=== PATIENT | female | born 1965 | race Caucasian/White ===

== ENCOUNTER → 2017-01-18 | Outpatient (CLI) | payer BC ==
--- NOTE | 2017-01-19 07:48 | MAMMOGRAPHY REPORT ---
BILATERAL DIGITAL DIAGNOSTIC MAMMOGRAM TOMOSYNTHESIS WITH CAD: 01/18/2017 CLINICAL HISTORY: History of right breast cancer status post lumpectomy, who presents for routine [facility] mammography. Also bilateral breast implants. The patient reports no current complaints. TECHNIQUE: Breast tomosynthesis in addition to standard 2D mammography was performed. Current study was also evaluated with a Computer Aided Detection (CAD) system. Bilateral CC and MLO 2-D and tomosy nthesis images were obtained. Tomosynthesis images were obtained of the implant displaced views only . COMPARISON: Comparison is made to exams dated: 01/18/2016 mammogram, 07/16/2015 mammogram, 01/14/2015 ultrasound, 01/14/2015 mammogram, 07/15/2014 mammogram, and 01/02/2014 mammogram - [facility]. BREAST COMPOSITION: The tissue of both breasts is heterogeneously dense, which may obscure small mas ses. FINDINGS: There are stable post surgical changes in the right lower inner quadrant from prior lumpect kulwinder, including stable architectural distortion and a surgical clip at the lumpectomy bed. A linear s car marker denotes a scar on the right medial breast. Loosely grouped benign-appearing punctate and coarse calcifications in the right lower inner quadrant near the lumpectomy bed are stable compared t o multiple prior exams including the January 2015 exam. Given the benign morphology and long-term st ability, the calcifications are considered benign. There are no suspicious masses, calcifications, o r areas of architectural distortion noted within either breast. Again noted is a circumscribed oval 11 mm mass in the left lower inner quadrant, which was shown to represent a benign cyst on the prior January 2015 ultrasound exam. IMPRESSION: ACR BI-RADS CATEGORY 2: BENIGN There is no mammographic evidence of malignancy in either breast. A 1 year screening mammogram is rec ommended. The patient has been verbally notified of the results. Approximately 10% of breast cancers are not detected with mammography. A negative mammographic report should not delay biopsy if a clinically suggestive mass is present. Izabela Mancini M.D. /:01/18/2017 13:12:49 Epidemiologist: Geri Apple RT(R)(M), [facility] letter sent: Normal 1/2 BI-RADS Code: ACR BI-RADS Category 2: Benign
== END | disposition home or self-care (01) ==
LOC: C.MAMM 12:00
PROVIDERS: ATTEND Surgery
DX: Z12.31 Encounter for screening mammogram for malignant neoplasm of breast (principal); Z85.3 Personal history of malignant neoplasm of breast; Z98.82 Breast implant status

== ENCOUNTER → 2017-02-15 | Outpatient (CLI) | payer BC | END | disposition home or self-care (01) | LOC: C.PATHSPEC 13:20 | PROVIDERS: ATTEND Obstetrics & Gynecology | DX: N93.9 Abnormal uterine and vaginal bleeding, unspecified (principal) ==

== ENCOUNTER → 2017-02-27 | Outpatient (CLI) | payer BC ==
[2017-02-27 18:00] LABS: BASO % 0.2 %; BASO ABS # 0.01 K/uL (0-0.2); COMPLETE YES; EOS % 3.1 %; IG% 0.2 %; LYMPH % 31.3 %; MEAN CELL VOLUME 92.1 fL (80-100); MEAN CORPUSCULAR HEMOGLOBIN 30.8 pg (25-34); MEAN CORPUSCULAR HGB CONC 33.4 g/dl (32-36); MEAN PLATELET VOLUME 10.8 fL (7.4-10.4); MONO % 8.5 %; NEUT % 56.7 %; PLATELET COUNT 206 K/uL (130-400); RED BLOOD COUNT 4.45 M/uL (4.2-5.4); WHITE BLOOD COUNT 5.43 K/uL (4.8-10.8)
[2017-02-27 18:01] LABS: PREG INTERNAL NEGATIVE QC NEG CLEAR BACKGROUND; PREG INTERNAL POSITIVE QC POS CONTROL LINE
== END | disposition home or self-care (01) ==
LOC: C.LAB1850 17:11
PROVIDERS: ATTEND Obstetrics & Gynecology
DX: Z01.812 Encounter for preprocedural laboratory examination (principal)

== ENCOUNTER → 2017-02-27 | Outpatient (CLI) | payer BC | END | disposition home or self-care (01) | LOC: C.CPL 17:41 | PROVIDERS: ATTEND Obstetrics & Gynecology | DX: Z01.810 Encounter for preprocedural cardiovascular examination (principal) ==

== ENCOUNTER → 2017-03-15 | Day surgery (SDC) | payer BC ==
[2017-03-01 12:48] VITALS: Ht 162.6 cm; Wt 72.7 kg
[~2017-03-15] VITALS: Ht 162.6 cm; Wt 72.7 kg
[~2017-03-15] MED LIST: ATROPINE SULFATE 0.1 MG/ML 5ML SYR IV PRN; CALC750T PO; DEXAMETHASONE SOD INJ 4 MG/ML VIAL ONE; EpHEDrine SULFATE INJ 50 MG/ML AMP IV PRN; FENTANYL CITRATE INJ 50 MCG/1 ML 2 ML VIAL IV PRN; FENTANYL CITRATE INJ 50 MCG/1 ML 2 ML VIAL ONE; FLUMAZENIL 0.1 MG/1 ML 10 ML VIAL IV PRN; IBUPROFEN 600 MG TAB PO PRN; KETOROLAC TROMETHAMINE 30 MG/ML VIAL IV. PRN; LABETALOL HCL IV 5 MG/ML 20ML IV PRN; LACTATED RINGER'S 1000ML 1,000 ML IV SCH; LIDOCAINE HCL 2% 2 ML VIAL (20MG/ML) ONE; MIDAZOLAM HCL 1 MG/ML 2ML VIAL ONE; NALOXONE HCL 0.4 MG/1 ML VIAL/CARP IV PRN; ONDANSETRON INJ 2 MG/ML 2 ML VIAL IV PRN; ONDANSETRON INJ 2 MG/ML 2 ML VIAL ONE; OXYCODONE/ACETAMINOPHEN 5-325 TAB PO PRN; PROMETHAZINE HCL INJ 12.5 MG in SODIUM CHLORIDE 0.9% 50ML 50 ML IV PRN; PROPOFOL IV EMULSION 10 MG/ML 20 ML VIAL IV ONE; SODIUM CHLORIDE 0.9% 1000ML 1,000 ML IV SCH
--- NOTE | 2017-03-15 13:15 | History & Physical Bridge - [place] ---
H&P Re-Evaluation Bridge Note: I have examined the patient, reviewed the History & Physical and in the interval since the performance of the History & Physical I have noted the following changes of clinical significance: No changes noted
--- NOTE | 2017-03-15 14:54 | Discharge Instructions ---
Discharge Instructions Date of Service Mar 15, 2017. Admission Reason for Admission: Abnormal Uterine Bleeding, Submucous Leiomyoma Of Discharge Discharge Diagnosis / Problem: after surgery Discharge Goals Goal(s): Routine recovery after surgery Activity Recommendations Activity Limitations: as noted below . Instructions / Follow-Up Instructions / Follow-Up ACTIVITY RECOMMENDATIONS: * Avoid tampons, douching, hot tubs, pools, and intercourse until bleeding has stopped. * May shower as usual. * No strenuous activity for 24-48 hours. After 24-48 hours, you may do anything you feel like doing (driving and sports are okay). SPECIAL CARE INSTRUCTIONS: Special Diet: * Mild nausea may occur in the immediate post-operative period. * Take clear liquids such as tea, cola or bouillon until all nausea has subsided; you may then resume your normal diet. Special Care: * Light bleeding and vaginal spotting can last from a few days to 3-4 weeks. Call your doctor if bleeding becomes heavier than the heaviest part of your period. * Check your temperature twice a day for one week. If it goes above 100.4 degrees Fahrenheit (38.0 Celsius), notify your doctor. * Call your doctor's office for an appointment for 2-4 weeks after your surgery. FOLLOW-UP VISIT: Call your doctor's office for an appointment for 2-4 weeks after your surgery. Current Hospital Diet Patient's current hospital diet: Discharge Diet Recommended Diet: Regular Diet Procedures Procedures Performed: Dilation And Curettage, Hysteroscopy, Myomectomy using Myosure, Endometrial Ablation using Novasure Pending Studies Studies pending at discharge: yes List of pending studies: pathology Medical Emergencies . Who to Call and When: Medical Emergencies: If at any time you feel your situation is an emergency, please call 911 immediately. . Non-Emergent Contact Non-Emergency issues call your: Contract Management Specialist . . "Provider Documentation" section prepared by Filomena Gonzalez. . VTE Core Measure Inpt VTE Proph given/why not?: SCD's
--- NOTE | 2017-03-15 14:58 | [facility] Post Operative Brief Note ---
Immediate Operative Summary Operative Date Mar 15, 2017. Pre-Operative Diagnosis Abnormal uterine bleeding, submucous leiomyoma of uterus Post-Operative Diagnosis same Procedure(s) Performed Dilation And Curettage, Hysteroscopy, Myomectomy using Myosure, Endometrial Ablation using Novasure Surgeon Dr Filomena Gonzalez Wet Process Technician Surgeon(s) none Estimated Blood Loss 0 mL Findings normal tubal ostia bilaterally. large SM fibroid at posterior wall at mid body to LEIDY. uterus sounds to 8cm, cx length 3.5cm. cavity length 4.5cm. cavity width 4.0cm. saline hysteroscopic fluid deficit 630cc. Fluids (cc crystalloids) 1000 Specimens A: Myomectomy and endometrial curettings Drains none Anesthesia general Complication(s) None Disposition Recovery Room / PACU
--- NOTE | 2017-03-15 15:06 | OPERATIVE REPORT ---
DATE OF OPERATION: 03/15/2017 PREOPERATIVE DIAGNOSES: 1. Abnormal uterine bleeding. 2. Submucosal myoma. POSTOPERATIVE DIAGNOSES: Same. PROCEDURES: 1. Dilatation and curettage. 2. Hysteroscopic myoma resection. 3. Endometrial ablation with NovaSure device. ANESTHESIA: General. IV FLUIDS: 1000 mL ESTIMATED BLOOD LOSS: 0 mL FINDINGS: A large myoma protruding into the uterine cavity from the posterior wall. Normal tubal ostia bilaterally, submucosal fibroid, more mid bodies lower uterine segment. Saline hysteroscopic fluid deficit 630 mL. Endometrial ablation took place in 1 minute 24 seconds. Uterine length of 4.5 cm, uterine width 4 cm. INDICATIONS: A 52-year-old 1, para 1 with a history of abnormal uterine bleeding and known submucosal fibroids. She desired conservative management with myomectomy and an attempted endometrial ablation. She was aware of all treatment options. She did have a preprocedure saline ultrasound. PROCEDURE: The patient taken to the operating room and identified. After adequate general anesthesia was obtained, she was placed in the dorsal lithotomy position and prepped and draped in the usual sterile fashion. The bladder was drained for clear yellow urine. A weighted speculum and anterior retractor were placed to visualize the cervix, which was grasped on its anterior lip with an Allis clamp. Cervix was sequentially dilated using Hegar dilators to 23. The MyoSure hysteroscope was used to visualize the cavity with the findings as noted above. The MyoSure device was used to carve away the submucosal fibroid to allow for a normal contour of the posterior wall. The uterine length was determined. The MyoSure and hysteroscope had been removed. The uterus was curettaged to a gritty consistency. All specimens were sent. The NovaSure device was readied. The uterine length was 4.5 cm and the device was placed gently into the uterine cavity. The device was opened and the cavity width was determined. The device then passed it's cavity assessment and an ablation took place in the usual fashion. The device was allowed to cool and then it was removed from the uterine cavity. The hysteroscope was reintroduced to visualize the cavity, which was consistent with ablation and no evidence of perforation. At this point, the procedure was terminated. All instruments were removed vaginally. The patient was returned to the supine position. She was awoken from anesthesia and transferred to the recovery room in stable condition. I attest to the content of the Intraoperative Record and any orders documented therein. Any exceptions are noted below. JEANNIE
[2017-03-15 15:28] VITALS: TEMP 37.1
--- NOTE | 2017-03-15 15:43 | Anesthesia Progress Nt - [facility] ---
Anesthesia Post Op Note Date & Time Mar 15, 2017 at 15:43 Vital Signs Pain Intensity: 0 Vital Signs Past 12 Hours Date Time Temp Pulse Resp B/P (MAP) Pulse Ox O2 Delivery O2 Flow Rate FiO2 03/15/17 15:28 37.1 76 20 117/58 (77) 98 Room Air 03/15/17 15:26 123/78 03/15/17 15:24 36.6 57 20 123/78 98 Room Air 03/15/17 15:23 55 24 03/15/17 15:23 55 24 95 03/15/17 15:22 51 12 03/15/17 15:22 52 12 96 03/15/17 15:21 115/78 03/15/17 15:20 55 19 96 03/15/17 15:20 56 19 03/15/17 15:16 104/84 03/15/17 15:15 56 17 03/15/17 15:15 56 17 98 03/15/17 15:14 55 14 97 03/15/17 15:14 56 14 03/15/17 15:13 52 11 99 03/15/17 15:13 52 11 03/15/17 15:12 53 13 100 03/15/17 15:12 54 13 03/15/17 15:11 143/80 03/15/17 15:08 51 15 03/15/17 15:08 51 15 100 03/15/17 15:07 54 13 100 03/15/17 15:07 54 13 03/15/17 15:06 124/83 03/15/17 15:02 56 12 100 03/15/17 15:02 56 12 03/15/17 15:01 58 12 129/78 100 03/15/17 15:01 60 12 03/15/17 14:57 119/82 03/15/17 14:56 36.5 72 16 119/82 100 Mask 8 03/15/17 14:56 73 03/15/17 14:56 73 03/15/17 12:20 36.8 85 16 134/92 (106) 98 Room Air Notes Mental Status: alert / awake / arousable, participated in evaluation Pt Amnestic to Procedure: Yes Nausea / Vomiting: adequately controlled Pain: adequately controlled Airway Patency, RR, SpO2: stable & adequate BP & HR: stable & adequate Hydration State: stable & adequate Anesthetic Complications: no major complications apparent
[2017-03-15 15:46] VITALS: BP 122/77; PULSE 64; O2SAT 99
== END | disposition home or self-care (01) ==
LOC: X.SURG 11:56
PROVIDERS: ATTEND Obstetrics & Gynecology
DX: N93.9 Abnormal uterine and vaginal bleeding, unspecified (principal); D25.0 Submucous leiomyoma of uterus; Z90.89 Acquired absence of other organs; Z98.890 Other specified postprocedural states